=== PATIENT | male | born 1995 | race Hispanic/Latino ===

== ENCOUNTER 2019-02-09 11:03 | Emergency (ER) | payer SELFPAY ==
[~2019-02-09] VITALS: Ht 162.6 cm; Wt 82.6 kg
[2019-02-09] MEDS ORDERED: BACITRACIN ZINC 0.9GM TP ONE ×2 (11:52→12:00)
== END 2019-02-09 12:10 | disposition home or self-care (01) ==
LOC: FSED 11:03
DX: T22.512A Corrosion of first degree of left forearm, initial encounter (principal); T23.572A Corrosion of first degree of left wrist, initial encounter; T23.562A Corrosion of first degree of back of left hand, initial encounter; T32.0 Corrosions involving less than 10% of body surface; Y99.0 Civilian activity done for income or pay
CPT/HCPCS: 99283